=== PATIENT | male | born 1955 | race Caucasian/White ===

== ENCOUNTER → 2016-05-09 | Outpatient (CLI) | payer BC ==
[~2016-05-09] MED LIST: ALBU18002 INH; ALBU1AER9 PO; AMOX1TAB43 PO; ASPCH81X PO; ASPI81TA28 PO; CEPH-571 PO; CLOT1CRE TOP; METO25TA56 PO; NAPR1TAB9 PO; PHEN-876 PO; SULF800T23 PO; TAMS0.4C38 PO; TIOT1AER PO; VNTHFA/IN INH
== END | disposition home or self-care (01) ==
LOC: C.LABSPEC 11:55
PROVIDERS: ATTEND Urology
DX: N35.9 Urethral stricture, unspecified (principal); R39.15 Urgency of urination

== ENCOUNTER 2016-06-20 09:31 | Emergency (ER) | payer BC ==
[~2016-06-20] VITALS: Ht 172.7 cm; Wt 122.4 kg
[~2016-06-20 09:31] MED LIST changes: -ALBU18002 INH; -ASPI81TA28 PO; -CEPH-571 PO; -CLOT1CRE TOP; -PHEN-876 PO; -SULF800T23 PO; -VNTHFA/IN INH
[2016-06-20 09:36] VITALS: TEMP 36.7; Ht 172.7 cm; Wt 122.4 kg
[2016-06-20] MEDS ORDERED: ALBU18002 INH (10:25)
[2016-06-20] MEDS ORDERED: FLUCONAZOLE 50 MG TAB PO ONE (10:30)
--- NOTE | 2016-06-20 10:33 | EMERGENCY ROOM VISIT NOTE ---
History Report prepared by Miguel: Osvaldo Lowery Under the Supervision of: Dr. Isaac Louise M.D. First contact with patient: 10:24 Chief Complaint: URINARY SYMPTOMS Stated Complaint: IRIATIATION IN PENIS, CAN'T STOP PEEING Nursing Triage Summary: Pt c/o urinary symptoms, burning, urgency, frequency for a couple days. History of the same states "I had a blockage. I had to have surgery." History of Present Illness The patient is a 60 year old male who presents to the Emergency Room with complaints of worsening urinary symptoms that started a few days ago. The patient states that when he urinates, the urine "sprays everywhere." Additional symptoms include burning while urinating, redness and swelling of the penis, and urinary frequency. The patient has a history of an UTI, which he believes he is experiencing again today. He also adds a history of a penile abscess. The patient denies abdominal pain, fevers, chills, difficulty with bowel movements, and any additional associated symptoms. He has a history of hypertension. He denies a history of diabetes. Source of History: patient Onset: a few days ago Position: other ( system ) Timing: worsening Modifying Factors (Relieving): other (None) Associated Symptoms: No abdominal pain, No chills, No fevers Note: Additional associated symptoms include redness/ swelling of penis Review of Systems All systems have been listed, reviewed, and are negative other than those previously mentioned. Please see Additional Medical History Sheet. Past Medical & Surgical Medical Problems: (1) COPD (chronic obstructive pulmonary disease) (2) Hypertension (3) Penile abscess Family History Aneurysm Heart disease Hypertension Kidney disease Kidney stones Lung disease Social History Smoking Status: Former Smoker Alcohol Use: occasionally Drug Use: none Marital Status: Housing Status: lives with family Occupation Status: employed Current/Historical Medications Scheduled Clotrimazole (Topical) (Lotrimin Af For Her), 1 APPL TOP BID Metoprolol Tartrate (Lopressor) (Lopressor), 25 MG PO BID Sulfa/Trimethoprim (Bactrim Ds 800MG/160MG), 1 TAB PO BID Tamsulosin Hcl (Flomax), 0.4 MG PO HS Tiotropium [place]-Olodaterol (Stiolto Respimat 2.5-2.5 Mcg/Act), 2 INHA PO DAILY Scheduled PRN Albuterol Sulfate (Proair Respiclick), 1 PUFF INH DAILY PRN for SOB/Wheezing Allergies Coded Allergies: No Known Allergies (Unverified , 10/23/15) Physical Exam Vital Signs Date Time Temp Pulse Resp B/P Pulse Ox O2 Delivery O2 Flow Rate FiO2 06/20/16 12:36 88 18 173/113 95 06/20/16 11:17 84 18 172/108 95 Room Air 06/20/16 09:36 36.7 93 18 191/114 95 Room Air Physical Exam GENERAL: Patient awake, alert, oriented x 3. Patient follows commands. Patient does not appear toxic. Patient is adequately hydrated and well- nourished. SKIN: No erythema, pallor, cyanosis or rash HEENT: Normal head, pupils equal, reactive to light and accommodation. LUNGS: Clear to auscultation. No wheezes, no rales, no rhonchi. HEART: No murmurs. No gallops. No rubs ABDOMEN: Obese. No masses, no rebound, no hepatomegaly or splenomegaly. GENITALIA: Circumcised male. White-josé luis discharge with erythema patches on glands. Scrotum not involved. Shaft of penis swollen EXTREMITIES: No signs of trauma. No pedal or pretibial edema. No calf or thigh tenderness. NEUROLOGIC: Cranial nerves II-XII within normal limits. No gross motor sensory function deficits. Medical Decision & Procedures Laboratory Results 06/20/16 11:12 Red Blood Count 4.79, Mean Corpuscular Volume 85.6, Mean Corpuscular Hemoglobin 31.1, Mean Corpuscular Hemoglobin Concent 36.3, Mean Platelet Volume 9.7, Neutrophils (%) (Auto) 65.5, Lymphocytes (%) (Auto) 22.6, Monocytes (%) (Auto) 8.6, Eosinophils (%) (Auto) 2.7, Basophils (%) (Auto) 0.4, Neutrophils # (Auto) 5.36, Lymphocytes # (Auto) 1.85, Monocytes # (Auto) 0.70, Eosinophils # (Auto) 0.22, Basophils # (Auto) 0.03 06/20/16 11:12 Test 06/20/16 09:40 06/20/16 11:12 Urine Color YELLOW Urine Appearance CLOUDY (CLEAR) Urine pH 6.0 (4.5-7.5) Urine Specific [place] 1.022 (1.000-1.030) Urine Protein TRACE (NEG) Urine Glucose (UA) NEG (NEG) Urine Ketones NEG (NEG) Urine Occult Blood 1+ (NEG) Urine Nitrite NEG (NEG) Urine Bilirubin NEG (NEG) Urine Urobilinogen NEG (NEG) Urine Leukocyte Esterase LARGE (NEG) Urine WBC (Auto) >30 /hpf (0-5) Urine RBC (Auto) 5-10 /hpf (0-4) Urine Hyaline Casts (Auto) 1-5 /lpf (0-5) Urine Epithelial Cells (Auto) 10-20 /lpf (0-5) Urine Bacteria (Auto) 3+ (NEG) White Blood Count 8.18 K/uL (4.8-10.8) Red Blood Count 4.79 M/uL (4.7-6.1) Hemoglobin 14.9 g/dL (14.0-18.0) Hematocrit 41.0 % (42-52) Mean Corpuscular Volume 85.6 fL (80-100) Mean Corpuscular Hemoglobin 31.1 pg (25-34) Mean Corpuscular Hemoglobin Concent 36.3 g/dl (32-36) Platelet Count 185 K/uL (130-400) Mean Platelet Volume 9.7 fL (7.4-10.4) Neutrophils (%) (Auto) 65.5 % Lymphocytes (%) (Auto) 22.6 % Monocytes (%) (Auto) 8.6 % Eosinophils (%) (Auto) 2.7 % Basophils (%) (Auto) 0.4 % Neutrophils # (Auto) 5.36 K/uL (1.4-6.5) Lymphocytes # (Auto) 1.85 K/uL (1.2-3.4) Monocytes # (Auto) 0.70 K/uL (0.11-0.59) Eosinophils # (Auto) 0.22 K/uL (0-0.5) Basophils # (Auto) 0.03 K/uL (0-0.2) RDW Standard Deviation 40.4 fL (36.4-46.3) RDW Coefficient of Variation 12.9 % (11.5-14.5) Immature Granulocyte % (Auto) 0.2 % Immature Granulocyte # (Auto) 0.02 K/uL (0.00-0.02) Anion Gap 7.0 mmol/L (3-11) Est Creatinine Clear Calc Drug Dose 111.3 ml/min Estimated GFR () 106.5 Estimated GFR (Non- 91.9 BUN/Creatinine Ratio 17.8 (10-20) Calcium Level 8.4 mg/dl (8.5-10.1) Laboratory results as stated above per my review. Medications Administered Medications (Trade) Dose Ordered Sig/Manohar Route Start Time Stop Time Status Last Admin Dose Admin Fluconazole (Diflucan Tab) 150 mg NOW ONCE PO 06/20/16 10:30 06/20/16 10:31 DC 06/20/16 11:17 150 MG ED Course 1024: Past medical records reviewed. The patient was evaluated in room C3. A complete history and physical examination was performed. 1030: Ordered Fluconazole 150 mg PO. 1211: Upon reevaluation, the patient appeared to have improvement of his symptoms. I discussed today's findings with the patient. He verbalized agreement of the treatment plan. The patient was discharged home. Medical Decision The Nurses notes reviewed. Medical history sheet reviewed. Differential diagnosis includes but is not limited to: Balanitis, yeast infection, phimosis, paraphimosis. Urinalysis reveals numerous white cells and bacteria. Patient also appears to have yeast balanitis. The patient was started on Diflucan here. He will be started on Bactrim and clotrimazole topical. The patient will require follow- up by a family physician within the next 2 weeks. Impression Primary Impression: Urinary tract infection Additional Impression: Candidal balanitis Scribe Attestation The scribe's documentation has been prepared under my direction and personally reviewed by me in its entirety. I confirm that the note above accurately reflects all work, treatment, procedures, and medical decision making performed by me. Departure Information Dispostion Home / Self-Care Prescriptions Sulfa/Trimethoprim (Bactrim Ds 800MG/160MG) Tab 1 TAB PO BID, #20 TAB Prov: Isaac Louise M.D. 06/20/16 Clotrimazole (Topical) (LOTRIMIN AF FOR HER) 1 % Cre 1 APPL TOP BID for 14 Days, #1 TUBE Prov: Isaac Louise M.D. 06/20/16 Referrals Goldy Orellana M.D. (PCP) Forms HOME CARE DOCUMENTATION FORM, IMPORTANT VISIT INFORMATION Patient Instructions My [facility] Additional Instructions 1 Bactrim twice a day for 10 days. Apply clotrimazole twice a day to your penis after retracting the foreskin and cleaning with soap and water. Then pull the foreskin back down to cover the end of the penis. Follow-up with your family physician within the next 2 weeks. Off work today and tomorrow. Problem Qualifiers
[2016-06-20 10:47] LABS: URINE APPEARANCE CLOUDY (CLEAR); URINE BILIRUBIN NEG (NEG); URINE COLOR YELLOW; URINE NITRITE NEG (NEG); URINE SPECIFIC GRAVITY 1.022 (1.000-1.030); UROBILINOGEN NEG (NEG); ZZUR CULT IF INDIC CLEAN CATCH YES
[2016-06-20 10:56] LABS: MANUAL MICROSCOPIC REQUIRED? NO; REVIEW REQ? NO
[2016-06-20 11:48] LABS: BASO % 0.4 %; BASO ABS # 0.03 K/uL (0-0.2); COMPLETE YES; EOS % 2.7 %; IG% 0.2 %; LYMPH % 22.6 %; LYMPH ABS # 1.85 K/uL (1.2-3.4); MEAN CELL VOLUME 85.6 fL (80-100); MEAN CORPUSCULAR HEMOGLOBIN 31.1 pg (25-34); MEAN CORPUSCULAR HGB CONC 36.3 g/dl (32-36); MEAN PLATELET VOLUME 9.7 fL (7.4-10.4); MONO % 8.6 %; NEUT % 65.5 %; PLATELET COUNT 185 K/uL (130-400); RED BLOOD COUNT 4.79 M/uL (4.7-6.1); WHITE BLOOD COUNT 8.18 K/uL (4.8-10.8)
[2016-06-20 12:04] LABS: BUN/CREATININE RATIO 17.8 (10-20); CALCIUM 8.4 mg/dl (8.5-10.1); CREATININE 0.91 mg/dl (0.60-1.40); POTASSIUM 3.5 mmol/L (3.5-5.1)
[2016-06-20] MEDS ORDERED: CLOT1CRE TOP (12:21)
[2016-06-20] MEDS ORDERED: SULF800T23 PO (12:21)
[2016-06-20 12:36] VITALS: BP 173/113; PULSE 88; O2SAT 95
== END 2016-06-20 12:39 | disposition home or self-care (01) ==
LOC: C.EDB 09:33 → C.EDC 12:39
DX: N39.0 Urinary tract infection, site not specified (principal); B37.42 Candidal balanitis; J44.9 Chronic obstructive pulmonary disease, unspecified; Z82.49 Family history of ischemic heart disease and other diseases of the circulatory system; Z84.1 Family history of disorders of kidney and ureter; Z83.6 Family history of other diseases of the respiratory system; Z87.891 Personal history of nicotine dependence

== ENCOUNTER 2016-11-09 16:40 | Emergency (ER) | payer BC ==
[~2016-11-09] VITALS: Ht 172.7 cm; Wt 124.1 kg
[~2016-11-09 16:40] MED LIST changes: +ALBU18002 INH; -ALBU1AER9 PO; -AMOX1TAB43 PO; -ASPCH81X PO; -NAPR1TAB9 PO; +SULF800T23 PO
[2016-11-09 16:52] VITALS: TEMP 36.7; Ht 172.7 cm; Wt 124.1 kg
[2016-11-09] MEDS ORDERED: ASPI81TA28 PO (17:10)
[2016-11-09] MEDS ORDERED: VNTHFA/IN INH (17:10)
--- NOTE | 2016-11-09 17:13 | EMERGENCY ROOM VISIT NOTE ---
History Report prepared by Miguel: Clint Ybarra Under the Supervision of: Dr. Clari Mir D.O. First contact with patient: 16:58 Chief Complaint: URINARY SYMPTOMS Stated Complaint: URINARY TRACT INFECTION Nursing Triage Summary: Urinary frequency and burning. History of Present Illness The patient is a 61 year old male who presents to the Emergency Room with complaints of abnormal urinary symptoms that began 3 days ago. The patient has been feeling like he has to urinate very frequently, and he notes that he has been urinating a lot more frequently than usual. He is also having some burning with urination. He denies any abdominal pain, back pain, fevers, or chills. Denies any pain with intercourse recently. He has a history of urinary tract infections and states that it could be one. However, he denies hematuria or foul odor. He had a brief episode of diaphoresis last night, but it has resolved since. 1 year ago, the patient saw Dr. Orellana of Urology who performed a surgical procedure on him secondary to his genitalia swelling. This is the first time since the procedure that he has had a symptom. He has no other problems with his prostate or kidneys to his knowledge. Denies swelling to his penis/scrotum. Denies penile discharge, rash/sores, denies testicular tenderness. Source of History: patient Onset: 3 days ago Position: other () Symptom Intensity: moderate Quality: other (Uinary frequency) Timing: other (Very frequent episodes) Associated Symptoms: + diaphoresis (Just one episode last night), + urinary symptoms (Burning with urination), No fevers, No chills, No abdominal pain, No back pain Review of Systems See HPI for pertinent positives & negatives. A total of 10 systems reviewed and were otherwise negative. Past Medical & Surgical Medical Problems: (1) COPD (chronic obstructive pulmonary disease) (2) Hypertension (3) Penile abscess Family History Aneurysm Heart disease Hypertension Kidney disease Kidney stones Lung disease Social History Smoking Status: Former Smoker Smokeless Tobacco Use: No Alcohol Use: occasionally Drug Use: none Marital Status: Housing Status: lives with family Occupation Status: employed Current/Historical Medications Scheduled Aspirin (Aspirin Ec), 81 MG PO DAILY Cephalexin (Keflex), 1 CAP PO BID Metoprolol Tartrate (Lopressor) (Lopressor), 25 MG PO BID Tamsulosin Hcl (Flomax), 0.4 MG PO HS Tiotropium [place]-Olodaterol (Stiolto Respimat 2.5-2.5 Mcg/Act), 2 INHA PO DAILY Scheduled PRN Phenazopyridine HCl (Pyridium), 200 MG PO TID PRN for Frequency/Burning w/ Urination Allergies Coded Allergies: No Known Allergies (Unverified , 10/23/15) Physical Exam Vital Signs Date Time Temp Pulse Resp B/P (MAP) Pulse Ox O2 Delivery O2 Flow Rate FiO2 11/09/16 19:43 80 20 148/90 95 11/09/16 18:28 73 18 150/87 94 Room Air 11/09/16 16:52 36.7 86 18 155/91 95 Room Air Physical Exam GENERAL: alert, well appearing, well nourished, no distress, non-toxic, ambulating normally, obese EYE EXAM: normal conjunctiva, PERRL and EOM's grossly intact OROPHARYNX: no exudate, no erythema, lips, buccal mucosa, and tongue normal and mucous membranes are moist NECK: supple, no nuchal rigidity, no adenopathy, non-tender LUNGS: Clear to auscultation. Normal chest wall mechanics HEART: no murmurs, S1 normal and S2 normal ABDOMEN: abdomen soft, non-tender, normo-active bowel sounds, no masses, no rebound or guarding. BACK: Back is symmetrical on inspection and there is no deformity, no midline tenderness, no CVA tenderness. SKIN: no rashes and no bruising UPPER EXTREMITIES: upper extremities are grossly normal. LOWER EXTREMITIES: No pitting edema. NEURO EXAM: Normal sensorium, cranial nerves II-XII grossly intact, normal speech, no gross weakness of arms, no gross weakness of legs. Medical Decision & Procedures Laboratory Results Test 11/09/16 17:20 11/09/16 18:39 Urine Color YELLOW Urine Appearance CLOUDY (CLEAR) Urine pH 6.5 (4.5-7.5) Urine Specific [place] 1.024 (1.000-1.030) Urine Protein 2+ (NEG) Urine Glucose (UA) TRACE (NEG) Urine Ketones NEG (NEG) Urine Occult Blood 2+ (NEG) Urine Nitrite NEG (NEG) Urine Bilirubin NEG (NEG) Urine Urobilinogen NEG (NEG) Urine Leukocyte Esterase MODERATE (NEG) Urine WBC (Auto) >30 /hpf (0-5) Urine RBC (Auto) 5-10 /hpf (0-4) Urine Hyaline Casts (Auto) 1-5 /lpf (0-5) Urine Epithelial Cells (Auto) 20-30 /lpf (0-5) Urine Bacteria (Auto) 2+ (NEG) Bedside Hemoglobin 11.6 g/dl (14.0-18.0) Bedside Hematocrit 34 % (42-52) Bedside Sodium 139 mEq/L (135-144) Bedside Potassium 4.8 mEq/L (3.3-5.0) Bedside Chloride 103 mEq/L (101-112) Bedside Total CO2 26 mEq/l (24-31) Anion Gap 16.0 mmol/L (16-25) Bedside Blood Urea Nitrogen 18 mg/dl (7-18) Bedside Creatinine 0.9 mg/dl (0.6-1.3) Bedside Glucose (other) 179 mg/dl (70-99) Bedside Ionized Calcium (Tom) 1.22 mmol/l (1.12-1.32) Laboratory results per my review. Medications Administered Medications (Trade) Dose Ordered Sig/Manohar Route Start Time Stop Time Status Last Admin Dose Admin Cephalexin Monohydrate (Keflex Cap) 500 mg NOW ONCE PO 11/09/16 18:00 11/09/16 18:01 DC 11/09/16 18:27 500 MG Phenazopyridine HCl (Pyridium Tab) 200 mg NOW STAT PO 11/09/16 18:09 11/09/16 18:10 DC 11/09/16 18:28 200 MG ED Course 1658: The patient was evaluated in room A4. A complete history and physical exam was performed. 1800: Ordered Keflex Cap 500 mg PO 1809: Ordered Pyridium Tab 200 mg PO 1918: Upon reevaluation, the patient is feeling better. I discussed the findings and the treatment plan with the patient. He verbalizes agreement and understanding. He was discharged home. Medical Decision Differentials include UTI, renal colic, phimosis, paraphimosis, and STD exposure. Pt with UTI on UA, given age and prior hx, labs checked, no renal dysfunction noted. No fevers here. No other systemic sx, no sx to suggest pyelo or stone. Discussed with pt close f/u with urology, sx to watch/return for, he verbalized understanding and was agreeable with plan. Pt well appearing here, ambulated with steady gait. Normal VS, mild htn likely situational. Culture pending. Medication Reconcilliation Current Medication List: was personally reviewed by me Blood Pressure Screening Patient's blood pressure: Elevated blood pressure Blood pressure disposition: Referred to PCP Impression Primary Impression: Urinary tract infection Scribe Attestation The scribe's documentation has been prepared under my direction and personally reviewed by me in its entirety. I confirm that the note above accurately reflects all work, treatment, procedures, and medical decision making performed by me. Departure Information Dispostion Home / Self-Care Prescriptions Phenazopyridine HCl (Pyridium) 200 Mg Tab 200 MG PO TID Y for Frequency/Burning w/Urination, #20 TAB Prov: Clari Mir, DO 11/09/16 Cephalexin (KEFLEX) 500 Mg Cap 1 CAP PO BID for 7 Days, #14 CAP Prov: Clari Mir, DO 11/09/16 Referrals Jonnathan Denton (PCP) Forms HOME CARE DOCUMENTATION FORM, IMPORTANT VISIT INFORMATION Patient Instructions My [facility] Additional Instructions Please take the antibiotics as prescribed. Please drink plenty of water and stay well-hydrated. Please follow up with your urologist as a precaution given your prior history. If you develop any abdominal pain, back pain, nausea or vomiting, fevers or chills, are unable to urinate, or any other new concerns, please return the emergency room. Problem Qualifiers Primary Impression: Urinary tract infection Urinary tract infection type: acute cystitis Hematuria presence: with hematuria Qualified Codes: N30.01 - Acute cystitis with hematuria
[2016-11-09 17:39] LABS: MANUAL MICROSCOPIC REQUIRED? NO; REVIEW REQ? NO; URINE APPEARANCE CLOUDY (CLEAR); URINE BILIRUBIN NEG (NEG); URINE COLOR YELLOW; URINE EPITHELIAL CELL AUTO 20-30 /lpf (0-5); URINE NITRITE NEG (NEG); URINE PH 6.5 (4.5-7.5); URINE SPECIFIC GRAVITY 1.024 (1.000-1.030); UROBILINOGEN NEG (NEG); ZZUR CULT IF INDIC CLEAN CATCH YES
[2016-11-09] MEDS ORDERED: CEPHALEXIN MONOHYDRATE 250 MG CAP PO ONE (18:00)
[2016-11-09] MEDS ORDERED: PHENAZOPYRIDINE HCL 200 MG TAB PO STA (18:09)
[2016-11-09 18:52] LABS: ISTAT CREATININE 0.9 mg/dl (0.6-1.3); ISTAT HEMOGLOBIN 11.6 g/dl (14.0-18.0); ISTAT IONIZED CALCIUM 1.22 mmol/l (1.12-1.32)
[2016-11-09] MEDS ORDERED: CEPH-571 PO (19:29)
[2016-11-09] MEDS ORDERED: PHEN-876 PO (19:29)
[2016-11-09 19:43] VITALS: BP 148/90; PULSE 80; O2SAT 95
== END 2016-11-09 19:44 | disposition home or self-care (01) ==
LOC: C.EDB 16:42 → C.EDA 19:44
DX: N30.01 Acute cystitis with hematuria (principal); J44.9 Chronic obstructive pulmonary disease, unspecified; I10 Essential (primary) hypertension; Z87.440 Personal history of urinary (tract) infections; Z87.891 Personal history of nicotine dependence; Z82.49 Family history of ischemic heart disease and other diseases of the circulatory system; Z84.1 Family history of disorders of kidney and ureter; Z79.82 Long term (current) use of aspirin; Z79.899 Other long term (current) drug therapy

== ENCOUNTER 2021-03-30 13:45 | Inpatient (IN) ==
--- NOTE | 2021-03-30 14:37 | Emergency Department Note ---
Impression & Plan Renal colic, Hydronephrosis, Leukocytosis, Vomiting ED Provider Note NAME: CLAY HENDRIX AGE: 65 SEX: M : 1955 ARRIVES VIA: Ambulance INFORMANT: Patient ED PROVIDER(S): Nathan Hemphill DO CHIEF COMPLAINT: Flank pain HPI: Patient is a 65-year-old male who presents to the ER for left flank pain. This started last night as a twinge and gradually got worse. Start with nausea and vomiting. He did have some diarrhea last night. Pain has intensified and radiated out to the left side. Denies any dysuria, urgency, frequency, or hematuria. No history of previous urinary stones. No other exacerbating or remitting factors. EMS gave him Toradol and his pain has now significantly improved. It was sharp and stabbing and now is dull. ROS: See above HPI for pertinent positives & negatives. A total of 10 systems reviewed and were otherwise negative. PAST MEDICAL HISTORY:See Below PAST SURGICAL HISTORY:See Below FAMILY HISTORY:See Below SOCIAL HISTORY:See Below HOME MEDICATIONS:See Below ALLERGIES:See Below VITALS:See Below PHYSICAL EXAMINATION: GENERAL: Sitting up in bed, alert, disheveled, mild distress EYE EXAM: normal conjunctiva. PERRL and EOM's grossly intact. OROPHARYNX: no exudate, no erythema, lips, buccal mucosa, and tongue normal and mucous membranes are moist NECK: supple, no nuchal rigidity, no adenopathy, non-tender LUNGS: Clear to auscultation. Normal chest wall mechanics HEART: no murmurs, S1 normal and S2 normal ABDOMEN: abdomen soft, non-tender, normo-active bowel sounds, no masses, no rebound or guarding. BACK: Back is symmetrical on inspection and there is no deformity, no midline tenderness, no CVA tenderness. SKIN: no rashes and no bruising UPPER EXTREMITIES: upper extremities are grossly normal. LOWER EXTREMITIES: No pitting edema. NEURO EXAM: Normal sensorium, cranial nerves II-XII grossly intact, normal speech, no gross weakness of arms, no gross weakness of legs. MEDICAL DECISION MAKING: Patient is a 65-year-old male who presents the ER for left flank pain. IV was established blood was obtained. Is found to be slightly tachycardic. Labs show leukocytosis of 15,000. There is a left shift. BMP on LFTs bilirubin and lipase was unremarkable. UA does suggest a UTI with leuks whites and only 5-[address] epithelials[address] Covid was negative. CT abdomen pelvis shows a distal 4 mm left ureteral stone. Patient was given Toradol prior to arrival and did extremely well. He was given IV fluids and [address] Klever Lovell from urology. He recommends following up in the office as an outpatient. Just prior to discharge patient started having significant worsening pain. He was having dry heaving earlier and that continued and was fairly persistent. He was given multiple doses of Zofran. He was also given multiple doses of morphine. He was discussed with hospitalist for further evaluation due to persistent pain and dry heaving. Triage Nursing notes reviewed. Limited review of prior medical records performed Vital Signs: reviewed and remarkable for hypertensive and tachycardic Differential diagnosis: Differential diagnoses includes but is not limited to gastritis, peptic ulcer disease, GERD, gallbladder disease, pancreatitis, small bowel obstruction, acute coronary syndrome, pericarditis, ischemic bowel, irritable bowel disease, irritable bowel syndrome, appendicitis, diverticulitis, malignancy, hernia, urinary tract infection, torsion, perforation, trauma, infectious. ER treatment provided: See below Diagnostics interpreted by me: ECG: none Cardiac Monitoring: An order was placed for continuous cardiac monitoring. The monitor shows a rate of 95 with sinus rhythm. Laboratory studies: As stated above and show below. Imaging studies: CT as discussed above Consultation(s): Discussed with neurology and they recommend following up as an outpatient Discussed with the hospitalist as pain had significant worsened and clinically cannot go home Procedures: none Critical Care: None Past Med/Surg History Medical History (Updated 03/30/21 @ 19:33 by Nathan Hemphill DO) Asthma WITH EARLY SIGNS OF EMPHYSEMA Diabetes mellitus, type 2 Hyperlipidemia Hypertension Kidney stones once Surgical History History of adenoidectomy History of incision and drainage PENIS/SCROTUM History of tonsillectomy Hx of vasectomy Pilonidal cyst Pyloric stenosis REPAIRED INFANT Family History Mother Family history of diabetes mellitus Social History Smoking Status: Former smoker Cigarettes Per Day: Smoked 1ppd x 35 years; Second Hand Exposure: No; Hx Alcohol Use: Yes Alcohol type: beer and hard liquor Hx Substance Use: No Preferred Language: Citizen Of [place] Communication Ability: Effective Postpartum Nurse Required: No Beliefs That Will Affect Care: None Current Living Situation: Spouse Feels Safe at Home: Yes Assistive Devices: Glasses Allergies Allergies Allergy/AdvReac Type Severity Reaction Status Date / Time No Known Drug Allergies Allergy Verified 03/30/21 16:40 Home Meds Home Medications Medication Instructions Recorded Confirmed albuterol sulfate 90 mcg/actuation 2 puff INHALATION Q6H PRN 07/01/18 03/30/21 aerosol inhaler fluticasone furoate 100 1 inh INHALATION QAM 07/01/18 03/30/21 mcg-vilanterol 25 mcg/dose inhalation powder (Breo Ellipta) metformin 1,000 mg tablet 1,000 mg PO BID 07/01/18 03/30/21 metoprolol tartrate 25 mg tablet 25 mg PO BID 07/01/18 03/30/21 simvastatin 20 mg tablet 20 mg PO QPM 11/04/18 03/30/21 B-complex with vitamin C 1 tab PO DAILY 03/30/21 03/30/21 Focus Factor 1 tab PO BID 03/30/21 03/30/21 aspirin 81 mg tablet,delayed 81 mg PO DAILY 03/30/21 03/30/21 release enalapril maleate 5 mg tablet 10 mg PO BID 03/30/21 03/30/21 exenatide microspheres 2 mg/0.85 2 mg SUBCUT WK 03/30/21 03/30/21 mL subcutaneous auto-injector (Byarpit Ambriz) multivitamin (Multiple Vitamins) 1 tab PO DAILY 03/30/21 03/30/21 Previous Rx's Medication Instructions Recorded ciprofloxacin HCl 500 mg tablet 500 mg PO Q12H #20 tab 03/30/21 (Cipro) oxycodone 5 mg tablet 5 mg PO Q6H PRN #20 tab 03/30/21 Results & Data (ED) Vital Signs Vital Signs - 24 hr 03/30/21 14:00 03/30/21 14:03 03/30/21 14:32 Temperature 36.8 C Temperature Source Oral Pulse Rate 105 H 104 H Pulse Rate [Left Finger] 105 H Pulse Rhythm Regular Regular Pulse Rhythm [Left Finger] Regular Pulse Strength Normal Pulse Strength [Left Finger] Normal Respiratory Rate 20 20 20 Respiratory Effort / Characteristics Non-Labored Spontaneous Non-Labored Respiratory Depth Normal Normal Respiratory Pattern Regular Blood Pressure 168/98 H Blood Pressure [Right Arm] 168/98 H Blood Pressure Mean 121 Blood Pressure Mean [Right Arm] 121 Blood Pressure Position Lying Blood Pressure Position [Right Arm] Sitting Pulse Oximetry 96 96 95 Oxygen Delivery Method Room Air Room Air Room Air Sepsis Recent Fever Within 48 Hours No Sepsis New/Unexplained Change in Mental Status No Sepsis Action Taken by Nursing No Action Required 03/30/21 15:08 03/30/21 17:08 03/30/21 18:30 Temperature Temperature Source Pulse Rate Pulse Rate [Left Finger] 108 H 91 H 104 H Pulse Rhythm Pulse Rhythm [Left Finger] Regular Regular Regular Pulse Strength Pulse Strength [Left Finger] Normal Normal Normal Respiratory Rate 20 20 20 Respiratory Effort / Characteristics Non-Labored Spontaneous Non-Labored Spontaneous Non-Labored Spontaneous Respiratory Depth Normal Normal Normal Respiratory Pattern Regular Regular Regular Blood Pressure Blood Pressure [Right Arm] 164/96 H 197/103 H 174/101 H Blood Pressure Mean Blood Pressure Mean [Right Arm] 118 134 125 Blood Pressure Position Blood Pressure Position [Right Arm] Sitting Sitting Sitting Pulse Oximetry 96 97 93 Oxygen Delivery Method Room Air Room Air Room Air Sepsis Recent Fever Within 48 Hours Sepsis New/Unexplained Change in Mental Status Sepsis Action Taken by Nursing Laboratory Data Result diagrams: 03/30/21 14:53 03/30/21 14:53 Lab Results 03/30/21 03/30/21 03/30/21 Range/Units 14:40 14:53 14:53 WBC 14.99 H (4.8-10.8) K/uL RBC 4.99 (4.7-6.1) M/uL Hgb 15.8 (14.0-18.0) g/dL Hct 45.4 (42-52) % MCV 91.0 (80-100) fL MCH 31.7 (25-34) pg MCHC 34.8 (32-36) g/dL RDW Std Deviation 43.5 (36.4-46.3) fL RDW Coeff of Zully 13.3 (11.5-14.5) % Plt Count 225 (130-400) K/uL MPV 9.5 (7.4-10.4) fL Immature Gran % (Auto) 0.3 % Neut % (Auto) 89.4 % Lymph % (Auto) 5.1 % [place] % (Auto) 5.0 % Eos % (Auto) 0.1 % Baso % (Auto) 0.1 % Neut # (Auto) 13.41 H (1.4-6.5) K/uL Lymph # (Auto) 0.77 L (1.2-3.4) K/uL [place] # (Auto) 0.75 H (0.11-0.59) K/uL Eos # (Auto) 0.01 (0-0.5) K/uL Baso # (Auto) 0.01 (0-0.2) K/uL Immature Gran # (Auto) 0.04 H (0.00-0.02) K/uL Sodium 138 (136-145) mmol/L Potassium 3.7 (3.5-5.1) mmol/L Chloride 106 (98-107) mmol/L Carbon Dioxide 26 (21-32) mmol/L Anion Gap 6.0 (3-11) BUN 16 (7-18) mg/dl Creatinine 1.13 (0.6-1.4) mg/dl Est Cr Clr Drug Dosing 82.2 ml/min Est GFR ( Amer) 79.2 ml/min Est GFR (Non-Af Amer) 68.3 ml/min BUN/Creatinine Ratio 14.5 (10-20) Glucose 173 H (70-99) mg/dl Calcium 9.0 (8.5-10.1) mg/dl Total Bilirubin 0.8 (0.2-1) mg/dl AST 22 (15-37) U/L ALT 41 (12-78) Alkaline Phosphatase 88 (45-117) U/L Total Protein 7.8 (6.4-8.2) gm/dl Albumin 3.8 (3.4-5.0) gm/dl Globulin 4.0 (2.5-4.0) gm/dl Albumin/Globulin Ratio 1.0 (0.9-2) Lipase 192 (73-393) U/L Urine Color Dark Yellow Urine Appearance Turbid A (Clear) Urine pH 5.0 (4.5-7.5) Ur Specific [place] 1.022 (1.000-1.030) Urine Protein 2+ H (Negative) Urine Glucose (UA) Negative (Negative) Urine Ketones 2+ H (Negative) Urine Blood 3+ H (Negative) Urine Nitrite Negative (Negative) Urine Bilirubin Negative (Negative) Urine Urobilinogen Negative (Negative) Ur Leukocyte Esterase 3+ H (Negative) Urine WBC (Auto) >30 H (0-5) /hpf Urine RBC (Auto) >30 H (0-4) /hpf U Hyaline Cast (Auto) 0 (0-5) /lpf U Epithel Cells (Auto) 5-10 H (0-5) /lpf Urine Bacteria (Auto) Negative (Negative) Urine Yeast Not Reportable SARS-CoV-2, RNA, NAAT (NEGATIVE) 03/30/21 Range/Units 18:20 WBC (4.8-10.8) K/uL RBC (4.7-6.1) M/uL Hgb (14.0-18.0) g/dL Hct (42-52) % MCV (80-100) fL MCH (25-34) pg MCHC (32-36) g/dL RDW Std Deviation (36.4-46.3) fL RDW Coeff of Zully (11.5-14.5) % Plt Count (130-400) K/uL MPV (7.4-10.4) fL Immature Gran % (Auto) % Neut % (Auto) % Lymph % (Auto) % [place] % (Auto) % Eos % (Auto) % Baso % (Auto) % Neut # (Auto) (1.4-6.5) K/uL Lymph # (Auto) (1.2-3.4) K/uL [place] # (Auto) (0.11-0.59) K/uL Eos # (Auto) (0-0.5) K/uL Baso # (Auto) (0-0.2) K/uL Immature Gran # (Auto) (0.00-0.02) K/uL Sodium (136-145) mmol/L Potassium (3.5-5.1) mmol/L Chloride (98-107) mmol/L Carbon Dioxide (21-32) mmol/L Anion Gap (3-11) BUN (7-18) mg/dl Creatinine (0.6-1.4) mg/dl Est Cr Clr Drug Dosing ml/min Est GFR ( Amer) ml/min Est GFR (Non-Af Amer) ml/min BUN/Creatinine Ratio (10-20) Glucose (70-99) mg/dl Calcium (8.5-10.1) mg/dl Total Bilirubin (0.2-1) mg/dl AST (15-37) U/L ALT (12-78) Alkaline Phosphatase (45-117) U/L Total Protein (6.4-8.2) gm/dl Albumin (3.4-5.0) gm/dl Globulin (2.5-4.0) gm/dl Albumin/Globulin Ratio (0.9-2) Lipase (73-393) U/L Urine Color Urine Appearance (Clear) Urine pH (4.5-7.5) Ur Specific [place] (1.000-1.030) Urine Protein (Negative) Urine Glucose (UA) (Negative) Urine Ketones (Negative) Urine Blood (Negative) Urine Nitrite (Negative) Urine Bilirubin (Negative) Urine Urobilinogen (Negative) Ur Leukocyte Esterase (Negative) Urine WBC (Auto) (0-5) /hpf Urine RBC (Auto) (0-4) /hpf U Hyaline Cast (Auto) (0-5) /lpf U Epithel Cells (Auto) (0-5) /lpf Urine Bacteria (Auto) (Negative) Urine Yeast SARS-CoV-2, RNA, NAAT NEGATIVE (NEGATIVE) Administered Medications Discontinued Medications Sodium Chloride (Nss 1000ml) 1,000 mls @ 999 mls/hr IV .Q1H1M ONE Stop: 03/30/21 16:47 Last Infusion: 03/30/21 17:19 Dose: 0 mls/hr Documented by: [id number] Admin: 03/30/21 16:05 Dose: 999 mls/hr Documented by: [id number] Ceftriaxone Sodium (Rocephin) 1,000 mg in 50 mls @ 100 mls/hr IV NOW STA Stop: 03/30/21 16:34 Last Infusion: 03/30/21 17:19 Dose: 0 mls/hr Documented by: [id number] Admin: 03/30/21 16:14 Dose: 100 mls/hr Documented by: [id number] Morphine Sulfate (Morphine Sulfate 4 Mg/Ml 1 Ml Carp\Vial) 4 mg IV NOW STA Stop: 03/30/21 16:45 Last Admin: 03/30/21 16:50 Dose: 4 mg Documented by: [id number] Morphine Sulfate (Morphine Sulfate 10 Mg/Ml Carp/Vial) 6 mg IV NOW STA Stop: 03/30/21 17:26 Last Admin: 03/30/21 18:06 Dose: 6 mg Documented by: [id number] Ondansetron HCl (Ondansetron Inj 2 Mg/Ml 2 Ml Vial) 4 mg IV NOW STA Stop: 03/30/21 16:45 Last Admin: 03/30/21 16:50 Dose: 4 mg Documented by: [id number] Imaging Data Radiologist's Impression: Abdomen/Pelvis CT 03/30/21 14:[address] WITHOUT CONTRAST CT DOSE: 1421.39 mGy.cm HISTORY: Acute right-sided flank pain l flank pain TECHNIQUE: Multiaxial CT images of the abdomen and pelvis were performed without contrast. A dose lowering technique was utilized adhering to the principles of ALARA. COMPARISON STUDY: None. FINDINGS: Clear lung bases. Punctate calcified granuloma the basal right lower lobe. There is no pneumatosis or pneumoperitoneum. The imaged inferior cardiac chambers appear unremarkable. The unenhanced spleen, pancreas, adrenal glands and gallbladder are unremarkable. Hepatic steatosis. There is mild left greater the right bilateral perinephric stranding. Mild cortical scarring with parenchymal thinning of the interpolar right kidney. There are a few scattered nonobstructing calculi of the right kidney measuring up to 3 mm. Mild left-sided hydroureteronephrosis secondary to an obstructing 4 mm calculus of the distal left ureter approximately 1 cm proximal to the ureterovesicular junction. Prostamegaly. Chronic bladder outlet obstruction with urinary bladder wall thickening, trabeculation and numerous diverticula measuring up to 4 cm. Associated perivesicular stranding. Atherosclerosis of the aorta without aneurysm. There is no adenopathy. There is no bowel obstruction or bowel wall thickening. Colonic diverticulosis. Normal appendix. Tiny fat filled periumbilical hernia. Degenerative changes of the spine, pelvis and hips. No acute fracture or suspicious bone lesion. IMPRESSION: 1. Mild left-sided hydroureter process secondary to an obstructing 4 mm calculus of the distal left ureter. 2. Nonobstructing right nephrolithiasis. 3. Prostamegaly with evidence of chronic bladder outlet obstruction. 4. Hepatic steatosis. ACT 112: Negative or not required by law. The above report was generated using voice recognition software. It may contain grammatical, syntax or spelling errors. Electronically signed by: Alen Garcia M.D. 03/30/2021 3:15 PM Discharge Plan Visit Data Chief Complaint: Flank Pain ED Provider: Nathan Hemphill Discharge Problem: Renal colic, Hydronephrosis, Leukocytosis, Vomiting Discharge Instructions Krames/Other Patient Handouts: ED [facility] Kidney Stone Activity Restrictions/Additional Instructions: Please follow up with your primary care doctor with in the next 24 hours. Any worsening of your symptoms, please return to the ED immediately. This includes any fevers greater than 100.4, worsening pain, chest pain, shortness breath, persistent nausea, vomiting, unable to eat or drink, or any other concerning signs or symptoms from your standpoint. You were found to have a blood pressure greater than 120 systolic over 90 diastolic. Due to the new Medicare guidelines, we are now recommending that you follow up with your primary care doctor in regards to this elevated blood pressure. Again any fevers above 100.4 please return to the ER immediately. Please contact urology first thing Thursday to set up an appointment and notify them that you were in the ER and were found to have a kidney stone. You were given medications during this visit that will inhibit your ability to drive, operate machinery and work. Please do NOT drive, operate machinery or work for the next 12hrs. You were also given a prescription for a narcotic. While taking this medication you should also not drive, operate machinery and or work. Please take the oxycodone [id number] for the first 24 hours as the pain is the worst during this time. You may also benefit from taking Motrin 400 mg 3 times a day just for the first 24 hours. Please take antibiotics as prescribed. Forms Stand Alone Forms: [facility] Prescriptions Prescriptions: New ciprofloxacin HCl [Cipro] 500 mg tablet 500 mg PO Q12H Qty: 20 RF: 0 oxycodone 5 mg tablet 5 mg PO Q6H PRN (Reason: pain) Qty: 20 RF: 0 No Action simvastatin 20 mg tablet 20 mg PO QPM RF: 0 metoprolol tartrate 25 mg Tablet 25 mg PO BID RF: 0 Breo Ellipta 100-25 mcg/dose Blister With Device 1 inh INHALATION QAM RF: 0 albuterol sulfate 90 mcg/actuation Hfa Aerosol Inhaler 2 puff INHALATION Q6H PRN (Reason: Wheezing) RF: 0 metformin 1,000 mg Tablet 1,000 mg PO BID RF: 0 aspirin [Aspir-Low] 81 mg Tablet,Delayed Release (Dr/Ec) 81 mg PO DAILY RF: 0 Bydureon BCise 2 mg/0.85 mL auto-injector 2 mg SUBCUT WK RF: 0 B-complex with vitamin C [Vitamin B Complex-C] Tablet 1 tab PO DAILY RF: 0 enalapril maleate 5 mg tablet 10 mg PO BID RF: 0 Focus Factor 1 tab PO BID RF: 0 multivitamin [Multiple Vitamins] Tablet 1 tab PO DAILY RF: 0 Referrals Referrals: Jonnathan Denton MD [Primary Care Provider] -
[2021-03-30 14:54] LABS: Appearance Urine Turbid (Clear); Bacteria Urine Automated Negative (Negative); Bilirubin Urine Negative (Negative); Blood Urine 3+ (Negative); Cast Urine Automated 0 /lpf (0-5); Color Urine Dark Yellow; Glucose Urine UA Negative (Negative); Ketones Urine 2+ (Negative); Leukocyte Esterase Urine 3+ (Negative); Nitrite Urine Negative (Negative); Protein Urine 2+ (Negative); Specific Gravity Urine 1.022 (1.000-1.030); Urobilinogen Urine Negative (Negative); WBC Urine Automated >30 /hpf (0-5)
[2021-03-30 15:05] LABS: Basophils # (auto) 0.01 K/uL (0-0.2); Basophils % (auto) 0.1 %; Eosinophils # (auto) 0.01 K/uL (0-0.5); Eosinophils % (auto) 0.1 %; Hematocrit (blood only) 45.4 % (42-52); Hemoglobin 15.8 g/dL (14.0-18.0); Immature Granulocytes # (auto) 0.04 K/uL (0.00-0.02); Immature Granulocytes % (auto) 0.3 %; Lymphocytes # (auto) 0.77 K/uL (1.2-3.4); Lymphocytes % (auto) 5.1 %; Mean Corpuscular Hemoglobin 31.7 pg (25-34); Mean Corpuscular Hgb Conc 34.8 g/dL (32-36); Mean Platelet Volume 9.5 fL (7.4-10.4); Monocytes # (auto) 0.75 K/uL (0.11-0.59); Neutrophils # (auto) 13.41 K/uL (1.4-6.5); Neutrophils % (auto) 89.4 %; Platelet Count 225 K/uL (130-400); RDW Coefficient of Variation 13.3 % (11.5-14.5); RDW Standard Deviation 43.5 fL (36.4-46.3); Red Blood Count 4.99 M/uL (4.7-6.1); White Blood Count 14.99 K/uL (4.8-10.8)
[2021-03-30 15:09] LABS: RBC Urine Automated >30 /hpf (0-4)
--- NOTE | 2021-03-30 15:17 | CT Scan Report ---
ABDOMEN AND PELVIS CT WITHOUT CONTRAST CT DOSE: 1421.39 mGy.cm HISTORY: Acute right-sided flank pain l flank pain TECHNIQUE: Multiaxial CT images of the abdomen and pelvis were performed without contrast. A dose lo wering technique was utilized adhering to the principles of ALARA. COMPARISON STUDY: None. FINDINGS: Clear lung bases. Punctate calcified granuloma the basal right lower lobe. There is no pneu matosis or pneumoperitoneum. The imaged inferior cardiac chambers appear unremarkable. The unenhanced spleen, pancreas, adrenal glands and gallbladder are unremarkable. Hepatic steatosis. There is mild left greater the right bilateral perinephric stranding. Mild cortical scarring with parenchymal thinn ing of the interpolar right kidney. There are a few scattered nonobstructing calculi of the right kid wei measuring up to 3 mm. Mild left-sided hydroureteronephrosis secondary to an obstructing 4 mm calc ulus of the distal left ureter approximately 1 cm proximal to the ureterovesicular junction. Prostame clarisa. Chronic bladder outlet obstruction with urinary bladder wall thickening, trabeculation and nume antwan diverticula measuring up to 4 cm. Associated perivesicular stranding. Atherosclerosis of the aor ta without aneurysm. There is no adenopathy. There is no bowel obstruction or bowel wall thickening. Colonic diverticulosis. Normal appendix. Tiny fat filled periumbilical hernia. Degenerative changes of the spine, pelvis and hips. No acute fractu re or suspicious bone lesion. IMPRESSION: 1. Mild left-sided hydroureter process secondary to an obstructing 4 mm calculus of the distal left u reter. 2. Nonobstructing right nephrolithiasis. 3. Prostamegaly with evidence of chronic bladder outlet obstruction. 4. Hepatic steatosis. ACT 112: Negative or not required by law. The above report was generated using voice recognition software. It may contain grammatical, syntax o r spelling errors. Electronically signed by: Alen Garcia M.D. 03/30/2021 3:15 PM
[2021-03-30 15:26] LABS: Albumin Level 3.8 gm/dl (3.4-5.0); BUN Creatinine Ratio 14.5 (10-20); Creatinine Clr Calc Pharmacy 82.2 ml/min; Est GFR (African American) 79.2 ml/min; Est GFR (Non-African American) 68.3 ml/min; Potassium 3.7 mmol/L (3.5-5.1)
[2021-03-30 15:28] LABS: Bilirubin,Total 0.8 mg/dl (0.2-1); Total Protein 7.8 gm/dl (6.4-8.2)
[2021-03-30] MEDS ORDERED: SODIUM CHLORIDE 0.9% 1000ML 1,000 ML IV ONE (15:47)
[2021-03-30] MEDS ORDERED: cefTRIAXone SODIUM 1,000 MG/50 ML BAG IV STA (16:05)
[2021-03-30] MEDS ORDERED: MoRPHine SULFATE 4 MG/ML 1 ML CARP\\VIAL IV STA (16:44)
[2021-03-30] MEDS ORDERED: ONDANSETRON INJ 2 MG/ML 2 ML VIAL IV STA ×2 (16:44→17:25)
[2021-03-30] MEDS ORDERED: MoRPHine SULFATE 10 MG/ML CARP/VIAL IV STA (17:25)
[2021-03-30] MEDS ORDERED: ACETAMINOPHEN 325 MG TAB PO PRN (17:43)
[2021-03-30] MEDS ORDERED: MoRPHine SULFATE 4 MG/ML 1 ML CARP\\VIAL IV PRN (18:05)
--- NOTE | 2021-03-30 18:24 | History & Physical Report ---
Date of Service March 30, 2021 Assessment & Plan (1) Nephrolithiasis: Plan: Bilateral- left sided renal colic with 4mm left sided obstructing proximal to UV junction - Pain control- Tylenol, Toradol, Oxy, Morphine for severe pain - Zofran for nausea - LR at 100ml/hour - Flomax 0.4 mg now and then qam - strain all urine - Urology consult placed - NPO (2) Renal colic: Plan: As above (3) Leukocytosis: Plan: Elevated WBC and NLR - UA mostly contaminated - Continue Rocephin 1GM for UTI and known stone - Afebrile (4) COPD (chronic obstructive pulmonary disease): Plan: Continue albuterol and Breo - no acute needs and does not have frequent exacerbations (5) Hypertension: Plan: Continue BB - Patient on enalipril- not on formulary - Likely elevated now secondary to pain - Follow, may have to convert enalapril to formulary (6) Diabetes mellitus: Plan: Hold Metformin - aspart sliding scale - BG q6 hour while NPO (7) HLD (hyperlipidemia): Plan: Continue simvastatin 20mg PO QPM (8) DVT prophylaxis: Plan: SCDS- ambulation - Hold on chemoprohy at this time until urology evaluation completed History of Present Illness Primary Care Provider: Jonnathan Denton MD 65f YOM with past medical history of: Obesity, DM II, HTN, HLD, urethral stricutres, meatal stenosis,COPD. Patient comes to the EMD today for 1 day history of renal colic pain to left side associated with nausea/vomitting. Patient was brought in via EMS- he received toradol and Zofran on the way, which he states made his pain better, upon preparing for discharge from EMD patient had increase in his pain and vomitted again. Patient to be admitted for pain control, IVF, continue abx, and urology evaluation. Patient states that last evening he developed sharp pain in his left side and was immediately followed by vomiting. He was able to sleep through the night and when he got up this morning he felt cold and clammy, showered and sat down to have a cup of coffee. Following his 2 sips of coffee he had pain again on his left flank and was associated with nausea and vomiting again. In the EMD the patient had CT scan of abdomen and pelvis completed, routine labs, UA and COVID test. His CT abdomen and pelvis revealed Mild left-sided hydroureter process secondary to an obstructing 4 mm calculus of the distal left ureter and few scattered stones on the right side, prostamegaly with chronic outlet obstruction. In the EMD he recieved 1 GM Rocephin, morphine and Zofran. Patient just returned from bathroom and feels better at this time. As above, will admit for symptom control and evaluation in the morning. Will keep NPO, LR at 100ml/hr, Flomax 0.4mg now and then daily. Patient has received his COVID vaccine and booster: His COVID test on admission is: Allergies Allergy/AdvReac Type Severity Reaction Status Date / Time No Known Drug Allergies Allergy Verified 03/30/21 16:40 Home Medications Medication Instructions Recorded Confirmed Type albuterol sulfate 90 mcg/actuation 2 puff INHALATION Q6H PRN 07/01/18 03/30/21 History aerosol inhaler fluticasone furoate 100 1 inh INHALATION QAM 07/01/18 03/30/21 History mcg-vilanterol 25 mcg/dose inhalation powder (Breo Ellipta) metformin 1,000 mg tablet 1,000 mg PO BID 07/01/18 03/30/21 History metoprolol tartrate 25 mg tablet 25 mg PO BID 07/01/18 03/30/21 History simvastatin 20 mg tablet 20 mg PO QPM 11/04/18 03/30/21 History B-complex with vitamin C 1 tab PO DAILY 03/30/21 03/30/21 History Focus Factor 1 tab PO BID 03/30/21 03/30/21 History aspirin 81 mg tablet,delayed 81 mg PO DAILY 03/30/21 03/30/21 History release ciprofloxacin HCl 500 mg tablet 500 mg PO Q12H #20 tab 03/30/21 Rx (Cipro) enalapril maleate 5 mg tablet 10 mg PO BID 03/30/21 03/30/21 History exenatide microspheres 2 mg/0.85 2 mg SUBCUT WK 03/30/21 03/30/21 History mL subcutaneous auto-injector (Bydureluisa BCise) multivitamin (Multiple Vitamins) 1 tab PO DAILY 03/30/21 03/30/21 History oxycodone 5 mg tablet 5 mg PO Q6H PRN #20 tab 03/30/21 Rx Past Med/Surg History Medical History (Updated 03/31/21 @ 10:33 by Bigg Neumann MD) Asthma WITH EARLY SIGNS OF EMPHYSEMA Diabetes mellitus, type 2 Hyperlipidemia Hypertension Kidney stones once Surgical History History of adenoidectomy History of incision and drainage PENIS/SCROTUM History of tonsillectomy Hx of vasectomy Pilonidal cyst Pyloric stenosis REPAIRED INFANT Family History Mother Family history of diabetes mellitus Social History Smoking Status: Former smoker Cigarettes Per Day: Smoked 1ppd x 35 years; Second Hand Exposure: No; Hx Alcohol Use: Yes Alcohol type: beer and hard liquor Hx Substance Use: No Preferred Language: Occitan Communication Ability: Effective Opto Mechanical Technician Required: No Beliefs That Will Affect Care: None Current Living Situation: Spouse Feels Safe at Home: Yes Assistive Devices: None Review of Systems Review of Systems: REVIEW OF SYSTEMS: Constitutional: (+) fever, sweats or chills Eyes: No diplopia, no worsening or blurred vision ENT: normal hearing, no trouble swallowing Respiratory: No cough, sputum, dyspnea at rest or on exertion Cardiovascular: No chest pain, tightness or palpitations Abdomen: (+) left flank pain, nausea, vomiting, diarrhea, NO constipation Musculoskeletal: No joint pain, calf pain, swelling Neurologic: No weakness, numbness/tingling, or balance problems Psychiatric: No anxiety or depression Skin: No rash or itch Physical Exam Physical Exam: PHYSICAL EXAM: General: awake, alert, no apparent distress Head: Normocephalic, atraumatic ENT: PERRL, EOMI, no pharyngeal exudate, mucous membranes moist Neuro: AAO x 3, speech clear and appropriate, strength intact bilaterally 5/5, sensation intact and equal all extremities and dermatomes, no pronator drift Chest: equal rise and fall of the chest, no accessory muscle use, no heaves or thrills, decreased in bases secondary to body habitus, on room air, Cardiac: Regular rate and rhythm, telemetry reviewed, skin warm dry, cap refill <3 seconds, peripheral pulses +2 no JVD, no murmur, no edema GI: NABS x 4 quadrants, soft, nontender to palpation, no rebound, guarding or tenderness : Spontaneously voiding, no pain, no CVA tenderness, Extremities: Normal inspection, no peripheral edema or erythema, calfs nontender to palpation Psych: Normal mood and affect Skin: no rash or erythema Results & Data Results & Data ([facility]) Vital Signs (Past 12 Hours) Vital Signs Temp Pulse Pulse Resp BP BP Pulse Ox 03/30/21 15:08 108 H 20 164/96 H 96 03/30/21 14:32 104 H 20 95 03/30/21 14:03 36.8 C 105 H 20 168/98 H 96 03/30/21 14:00 105 H 20 168/98 H 96 Laboratory Results Abnormal lab results 03/30/21 03/30/21 03/30/21 Range/Units 14:40 14:53 14:53 WBC 14.99 H (4.8-10.8) K/uL Neut # (Auto) 13.41 H (1.4-6.5) K/uL Lymph # (Auto) 0.77 L (1.2-3.4) K/uL Rogers # (Auto) 0.75 H (0.11-0.59) K/uL Immature Gran # (Auto) 0.04 H (0.00-0.02) K/uL Glucose 173 H (70-99) mg/dl Urine Appearance Turbid A (Clear) Urine Protein 2+ H (Negative) Urine Ketones 2+ H (Negative) Urine Blood 3+ H (Negative) Ur Leukocyte Esterase 3+ H (Negative) Urine WBC (Auto) >30 H (0-5) /hpf Urine RBC (Auto) >30 H (0-4) /hpf U Epithel Cells (Auto) 5-10 H (0-5) /lpf Diagnostic Findings Abdomen/Pelvis CT 03/30/21 14:[address] WITHOUT CONTRAST CT DOSE: 1421.39 mGy.cm HISTORY: Acute right-sided flank pain l flank pain TECHNIQUE: Multiaxial CT images of the abdomen and pelvis were performed without contrast. A dose lowering technique was utilized adhering to the principles of ALARA. COMPARISON STUDY: None. FINDINGS: Clear lung bases. Punctate calcified granuloma the basal right lower lobe. There is no pneumatosis or pneumoperitoneum. The imaged inferior cardiac chambers appear unremarkable. The unenhanced spleen, pancreas, adrenal glands and gallbladder are unremarkable. Hepatic steatosis. There is mild left greater the right bilateral perinephric stranding. Mild cortical scarring with parenchymal thinning of the interpolar right kidney. There are a few scattered nonobstructing calculi of the right kidney measuring up to 3 mm. Mild left-sided hydroureteronephrosis secondary to an obstructing 4 mm calculus of the distal left ureter approximately 1 cm proximal to the ureterovesicular junction. Prostamegaly. Chronic bladder outlet obstruction with urinary bladder wall thickening, trabeculation and numerous diverticula measuring up to 4 cm. Associated perivesicular stranding. Atherosclerosis of the aorta without aneurysm. There is no adenopathy. There is no bowel obstruction or bowel wall thickening. Colonic diverticulosis. Normal appendix. Tiny fat filled periumbilical hernia. Degenerative changes of the spine, pelvis and hips. No acute fracture or suspicious bone lesion. IMPRESSION: 1. Mild left-sided hydroureter process secondary to an obstructing 4 mm calculus of the distal left ureter. 2. Nonobstructing right nephrolithiasis. 3. Prostamegaly with evidence of chronic bladder outlet obstruction. 4. Hepatic steatosis. ACT 112: Negative or not required by law. The above report was generated using voice recognition software. It may contain grammatical, syntax or spelling errors. Electronically signed by: Alen Garcia M.D. 03/30/2021 3:15 PM Medications Administered Home Medications albuterol sulfate 90 mcg/actuation aerosol inhaler 2 puff INHALATION Q6H PRN 07/01/18 [History Confirmed 03/30/21] fluticasone furoate 100 mcg-vilanterol 25 mcg/dose inhalation powder (Breo Ellipta) 1 inh INHALATION QAM 07/01/18 [History Confirmed 03/30/21] metformin 1,000 mg tablet 1,000 mg PO BID 07/01/18 [History Confirmed 03/30/21] metoprolol tartrate 25 mg tablet 25 mg PO BID 07/01/18 [History Confirmed 03/30/21] simvastatin 20 mg tablet 20 mg PO QPM 11/04/18 [History Confirmed 03/30/21] B-complex with vitamin C 1 tab PO DAILY 03/30/21 [History Confirmed 03/30/21] Focus Factor 1 tab PO BID 03/30/21 [History Confirmed 03/30/21] aspirin 81 mg tablet,delayed release 81 mg PO DAILY 03/30/21 [History Confirmed 03/30/21] ciprofloxacin HCl 500 mg tablet (Cipro) 500 mg PO Q12H #20 tab 03/30/21 [Rx] enalapril maleate 5 mg tablet 10 mg PO BID 03/30/21 [History Confirmed 03/30/21] exenatide microspheres 2 mg/0.85 mL subcutaneous auto-injector (Bydureon BCise) 2 mg SUBCUT WK 03/30/21 [History Confirmed 03/30/21] multivitamin (Multiple Vitamins) 1 tab PO DAILY 03/30/21 [History Confirmed 03/30/21] oxycodone 5 mg tablet 5 mg PO Q6H PRN #20 tab 03/30/21 [Rx] Active Medications Acetaminophen (Acetaminophen 325 Mg Tab) 650 mg PO Q6H PRN PRN Reason: pain mild-moderate Stop: 04/29/21 17:42 Morphine Sulfate (Morphine Sulfate 4 Mg/Ml 1 Ml Carp\Vial) 3 mg IV Q4 PRN PRN Reason: severe pain not controlled Stop: 04/13/21 18:04 Discontinued Medications Sodium Chloride (Nss 1000ml) 1,000 mls @ 999 mls/hr IV .Q1H1M ONE Stop: 03/30/21 16:47 Last Infusion: 03/30/21 17:19 Dose: 0 mls/hr Documented by: [id number] Admin: 03/30/21 16:05 Dose: 999 mls/hr Documented by: [id number] Ceftriaxone Sodium (Rocephin) 1,000 mg in 50 mls @ 100 mls/hr IV NOW STA Stop: 03/30/21 16:34 Last Infusion: 03/30/21 17:19 Dose: 0 mls/hr Documented by: [id number] Admin: 03/30/21 16:14 Dose: 100 mls/hr Documented by: [id number] Morphine Sulfate (Morphine Sulfate 4 Mg/Ml 1 Ml Carp\Vial) 4 mg IV NOW STA Stop: 03/30/21 16:45 Last Admin: 03/30/21 16:50 Dose: 4 mg Documented by: [id number] Morphine Sulfate (Morphine Sulfate 10 Mg/Ml Carp/Vial) 6 mg IV NOW STA Stop: 03/30/21 17:26 Last Admin: 03/30/21 18:06 Dose: 6 mg Documented by: [id number] Ondansetron HCl (Ondansetron Inj 2 Mg/Ml 2 Ml Vial) 4 mg IV NOW STA Stop: 03/30/21 16:45 Last Admin: 03/30/21 16:50 Dose: 4 mg Documented by: [id number] Additional Comments: Sinus rhythm with 1st degree A-V block Otherwise normal ECG When compared with ECG of 23-OCT-2015 17:07, No significant change was found Confirmed by MARC CRUZ ([id number]) on 07/07/2018 4:55:52 AM Code Status & VTE Plan Code Status CODE: FULL VTE: SCDS, ambulation- hold on chemoprophylaxis until surgical evaluation VTE Prophylaxis Plan VTE Prophylaxis will be ordered: Yes Supervising Physician Co-Signing Physician Notes Attending note: patient seen and examined with Eleazar LOPEZ. I agree with his history, ROS, examination and assessment and plan. I reviewed labs, imaging. 4mm ureteral stone with pain IV fluids, pain control, consult urology for recommendations on management check BMP in morning PG Care Time/CCT Total # of Minutes Spent Total Time Spent with Patient: Total time spent is greater than 50% in coordination of care (as documented) at patient's floor/unit and/or counseling patient: Coding Level of Care Code 43395 Initial Inpt Care Lvl 3 Diagnoses Nephrolithiasis N20.0 Renal colic N23 COPD (chronic obstructive pulmonary disease) J44.9 Hypertension I10 Diabetes mellitus E11.9 HLD (hyperlipidemia) E78.5 Leukocytosis D72.829 DVT prophylaxis Z29.9
[2021-03-30] MEDS ORDERED: TAMSULOSIN HCL 0.4 MG CAP PO ONE (20:12)
[2021-03-30] MEDS: LACTATED RINGER'S 1,000 ML IV SCH (20:23)
[2021-03-30] MEDS ORDERED: oxyCODONE HCL IR 5 MG TAB (IMMEDIATE RELEASE) PO PRN (22:44)
[2021-03-30] MEDS ORDERED: GLUCOSE 40% GEL 15 GM TUBE PO PRN (22:44)
[2021-03-30] MEDS ORDERED: ALBUTEROL HFA 8 GM INHALER INH PRN (22:44)
[2021-03-30] MEDS ORDERED: SIMVASTATIN 20 MG TAB PO SCH (22:44)
[2021-03-30] MEDS ORDERED: GLUCOSE 10 TABS/TUBE PO PRN (22:44)
[2021-03-30] MEDS ORDERED: CARBOHYDRATES FOR HYPOGLYCEMIA PO PRN (22:44)
[2021-03-30] MEDS ORDERED: KETOROLAC TROMETHAMINE 15 MG/ML VIAL IV PRN (22:44)
[2021-03-30] MEDS ORDERED: GLUCAGON FOR INJ 1 MG VIAL SQ PRN (22:44)
[2021-03-30] MEDS ORDERED: DEXTROSE 50% 50 ML SYRINGE IV PRN (22:44)
[2021-03-30] MEDS: METOPROLOL TARTRATE 25 MG TAB PO SCH (23:48)
[2021-03-30] MEDS: ENALAPRIL MALEATE 10 MG TAB PO SCH (23:48)
[2021-03-31] MEDS: INSULIN ASPART PER UNIT SC SCH ×3 (00:38→13:04)
[2021-03-31] MEDS: LACTATED RINGER'S 1,000 ML IV SCH (05:26)
[2021-03-31 06:25] LABS: Basophils # (auto) 0.03 K/uL (0-0.2); Basophils % (auto) 0.3 %; Eosinophils # (auto) 0.11 K/uL (0-0.5); Hematocrit (blood only) 40.2 % (42-52); Immature Granulocytes # (auto) 0.02 K/uL (0.00-0.02); Immature Granulocytes % (auto) 0.2 %; Lymphocytes # (auto) 1.94 K/uL (1.2-3.4); Lymphocytes % (auto) 17.1 %; Mean Corpuscular Hemoglobin 31.5 pg (25-34); Mean Corpuscular Hgb Conc 34.8 g/dL (32-36); Mean Corpuscular Volume 90.5 fL (80-100); Mean Platelet Volume 9.4 fL (7.4-10.4); Monocytes # (auto) 1.18 K/uL (0.11-0.59); Monocytes % (auto) 10.4 %; Neutrophils # (auto) 8.04 K/uL (1.4-6.5); Platelet Count 202 K/uL (130-400); RDW Coefficient of Variation 13.4 % (11.5-14.5); RDW Standard Deviation 44.3 fL (36.4-46.3); Red Blood Count 4.44 M/uL (4.7-6.1); White Blood Count 11.32 K/uL (4.8-10.8)
[2021-03-31 06:50] LABS: BUN Creatinine Ratio 13.6 (10-20); Calcium 8.5 mg/dl (8.5-10.1); Creatinine Clr Calc Pharmacy 87.7 ml/min; Est GFR (African American) 86.5 ml/min; Est GFR (Non-African American) 74.7 ml/min; Magnesium 2.3 mg/dl (1.8-2.4); Potassium 3.4 mmol/L (3.5-5.1)
[2021-03-31] MEDS ORDERED: TAMSULOSIN HCL 0.4 MG CAP PO SCH (09:00)
[2021-03-31] MEDS ORDERED: FLUTICASONE/VILANTEROL 100/25MCG 14 PUFFS/INHALER INH SCH (09:00)
--- NOTE | 2021-03-31 10:31 | Urology Consultation ---
Date of Consultation March 31, 2021 Assessment & Plan (1) Ureteral calculus: -The patient likely passed the stone late last evening -No pain at the moment -OK for discharge from a Urology POV -Can f/u as an outpt for routine f/u KUB History of Present Illness Reason for Consultation: Ureteral Calculus Attending Physician: Nathan Broderick DO History of Present Illness 5f YOM with past medical history of: Obesity, DM II, HTN, HLD, urethral stricutres, meatal stenosis,COPD. Patient comes to the EMD for 1 day history of renal colic pain to left side associated with nausea/vomitting. Patient was brought in via EMS- he received toradol and Zofran on the way, which he states made his pain better, upon preparing for discharge from EMD patient had increase in his pain and vomitted again. Patient states that last evening he developed sharp pain in his left side and was immediately followed by vomiting. He was able to sleep through the night and when he got up this morning he felt cold and clammy, showered and sat down to have a cup of coffee. Following his 2 sips of coffee he had pain again on his left flank and was associated with nausea and vomiting again. In the EMD the patient had CT scan of abdomen and pelvis completed, routine labs, UA and COVID test. His CT abdomen and pelvis revealedMild left-sided hydroureter process secondary to an obstructing 4 mm calculus of the distal left ureter and few scattered stones on the right side, prostamegaly with chronic outlet obstruction. Since admission, the patient had a urinary episode with intermit/hest. There after he has felt very little pain and has voided normally. Allergies Allergy/AdvReac Type Severity Reaction Status Date / Time No Known Drug Allergies Allergy Verified 03/30/21 16:40 Home Medications Medication Instructions Recorded Confirmed Type albuterol sulfate 90 mcg/actuation 2 puff INHALATION Q6H PRN 07/01/18 03/30/21 History aerosol inhaler fluticasone furoate 100 1 inh INHALATION QAM 07/01/18 03/30/21 History mcg-vilanterol 25 mcg/dose inhalation powder (Breo Ellipta) metformin 1,000 mg tablet 1,000 mg PO BID 07/01/18 03/30/21 History metoprolol tartrate 25 mg tablet 25 mg PO BID 07/01/18 03/30/21 History simvastatin 20 mg tablet 20 mg PO QPM 11/04/18 03/30/21 History B-complex with vitamin C 1 tab PO DAILY 03/30/21 03/30/21 History Focus Factor 1 tab PO BID 03/30/21 03/30/21 History aspirin 81 mg tablet,delayed 81 mg PO DAILY 03/30/21 03/30/21 History release ciprofloxacin HCl 500 mg tablet 500 mg PO Q12H #20 tab 03/30/21 Rx (Cipro) enalapril maleate 5 mg tablet 10 mg PO BID 03/30/21 03/30/21 History exenatide microspheres 2 mg/0.85 2 mg SUBCUT WK 03/30/21 03/30/21 History mL subcutaneous auto-injector (Bydureluisa Yinse) multivitamin (Multiple Vitamins) 1 tab PO DAILY 03/30/21 03/30/21 History oxycodone 5 mg tablet 5 mg PO Q6H PRN #20 tab 03/30/21 Rx Patient History Medical History (Updated 03/31/21 @ 10:33 by Bigg Neumann MD) Asthma WITH EARLY SIGNS OF EMPHYSEMA Diabetes mellitus, type 2 Hyperlipidemia Hypertension Kidney stones once Surgical History History of adenoidectomy History of incision and drainage PENIS/SCROTUM History of tonsillectomy Hx of vasectomy Pilonidal cyst Pyloric stenosis REPAIRED INFANT Family History Mother Family history of diabetes mellitus Social History Smoking Status: Former smoker Cigarettes Per Day: Smoked 1ppd x 35 years; Second Hand Exposure: No; Hx Alcohol Use: Yes Alcohol type: beer and hard liquor Hx Substance Use: No Preferred Language: Dutch Communication Ability: Effective Concrete Pavement Installer Required: No Beliefs That Will Affect Care: None Current Living Situation: Spouse Other Information That Helps Us Care for You: No Feels Safe at Home: Yes Safety Concerns: Feels Safe At This Time Assistive Devices: Glasses Review of Systems Constitutional: as per Subjective / HPI Physical Exam Constitutional: WD/WN, vitals as above Eyes: PERRL, conjunctivae normal, anicteric sclerae Respiratory: normal respiratory effort, lungs clear to auscultation Skin: no rashes, warm and dry Lymphatic: no cervical or axillary lymphadenopathy Results & Data ([facility]) Vital Signs (Past 12 Hours) Vital Signs Temp Pulse Resp BP Pulse Ox 03/31/21 07:39 36.6 C 86 16 149/76 H 94 03/31/21 00:52 157/82 H 03/31/21 00:15 36.7 C 100 H 16 191/97 H 96 03/30/21 23:55 100 H 18 150/96 H 94 03/30/21 22:49 104 H 20 149/99 H 93 PG Care Time/CCT Total # of Minutes Spent Total Time Spent with Patient: Total time spent is greater than 50% in coordination of care (as documented) at patient's floor/unit and/or counseling patient: 60 Coding Level of Care Code 91129 Inpt Consult Level 4 Diagnoses Ureteral calculus N20.1
[2021-03-31] MEDS: ENALAPRIL MALEATE 10 MG TAB PO SCH (11:00)
[2021-03-31] MEDS: METOPROLOL TARTRATE 25 MG TAB PO SCH (11:01)
--- NOTE | 2021-03-31 13:56 | Discharge Summary ---
Date of Service March 31, 2021 Admission HPI Per Admitting Provider 65f YOM with past medical history of: Obesity, DM II, HTN, HLD, urethral stricutres, meatal stenosis,COPD. Patient comes to the EMD today for 1 day history of renal colic pain to left side associated with nausea/vomitting. Patient was brought in via EMS- he received toradol and Zofran on the way, which he states made his pain better, upon preparing for discharge from EMD patient had increase in his pain and vomitted again. Patient to be admitted for pain control, IVF, continue abx, and urology evaluation. Patient states that last evening he developed sharp pain in his left side and was immediately followed by vomiting. He was able to sleep through the night and when he got up this morning he felt cold and clammy, showered and sat down to have a cup of coffee. Following his 2 sips of coffee he had pain again on his left flank and was associated with nausea and vomiting again. In the EMD the patient had CT scan of abdomen and pelvis completed, routine labs, UA and COVID test. His CT abdomen and pelvis revealed Mild left-sided hydroureter process secondary to an obstructing 4 mm calculus of the distal left ureter and few scattered stones on the right side, prostamegaly with chronic outlet obstruction. In the EMD he recieved 1 GM Rocephin, morphine and Zofran. Patient just returned from bathroom and feels better at this time. As above, will admit for symptom control and evaluation in the morning. Will keep NPO, LR at 100ml/hr, Flomax 0.4mg now and then daily. Patient has received his COVID vaccine and booster: His COVID test on admission is: Principal Diagnosis 1. Left hydroureter 2/2 4mm Left Distal Ureter, has likely since passed 2. Leukocytosis 3. Abnormal UA-- ? UTI Discharge Exam General: Resting comfortably in his hospital bed. NAD. HEENT: Head is AT/NC buccal mucosa is moist and pink Neck: No JVD. Negative hepatojugular reflex Cardiac: RRR without M/G/R Lungs: CTA without W/R/R Abdomen: Normoactive X4. Soft and nontender in all quadrants. No CVA tenderness Extremities: No peripheral clubbing cyanosis or edema Neuro: A&O X4 cranial nerves II through XII are grossly intact no focal neuro deficits Skin: No obvious skin lesions or rashes Psych: Appropriate affect pleasant and cooperative Discharge Data Allergies Allergy/AdvReac Type Severity Reaction Status Date / Time No Known Drug Allergies Allergy Verified 03/30/21 16:40 Consultations 03/30/21 17:25 ED Decision to Admit Stat 03/30/21 22:44 Consult Urology Routine Assessment & Plan (1) Ureteral calculus: -The patient likely passed the stone late last evening -No pain at the moment -OK for discharge from a Urology POV -Can f/u as an outpt for routine f/u KUB Ordered Studies 03/30/21 14:32 CT abd pelvis wo con Stat IMPRESSION: 1. Mild left-sided hydroureter process secondary to an obstructing 4 mm calculus of the distal left ureter. 2. Nonobstructing right nephrolithiasis. 3. Prostamegaly with evidence of chronic bladder outlet obstruction. 4. Hepatic steatosis. Hospital Course (1) Nephrolithiasis: Bilateral- left sided renal colic with 4mm left sided obstructing proximal to UV junction * per history, likely passed the stone lastnight (was unable to void, then had "sputtering of urine several times then free flowing urine". Since this episode, no pain * seen by Urology who recommends D/C to home (reports no need for KUB now but this can be facilitated as an OP) * UA was leukocyte esterase positive but nitrite negative along with leukocytosis upon presentation. Would advise continued antibiotics X 3 to 5 days for uncomplicated UTI (Cipro 500mg bid) * Established with Dr. Orellana. To FU as an OP * return to the Ed for new or worsening symptoms (2) Renal colic: As above (3) Leukocytosis: * 14.9 upon presentation * Urine questionable (turbid and leukocyte esterase positive. Nitrite negative) * Treated with Rocephin and white blood cell count normalized * Continue antibiotic therapy X 5 days (Cipro 500 mg twice dailyRx already sent by ED physician as initial plan was for discharge from the ED but given amount of pain, patient was hospitalized) (4) COPD (chronic obstructive pulmonary disease): Continue albuterol and Breo - no acute needs and does not have frequent exacerbations (5) Hypertension: Continue BB - Patient on enalipril - Likely elevated now secondary to pain but acceptable (149/76) (6) Diabetes mellitus: * Metformin held while in house. Treated with sliding scale coverage/correction dosing analog * Okay to resume Metformin upon discharge. CT done in the ED but without con trast thus no need to hold (7) HLD (hyperlipidemia): Continue simvastatin 20mg PO QPM (8) DVT prophylaxis: SCDS- ambulation d/c to home Total Time Total Time Spent Total Time Spent (In Minutes): 35 min Discharge Plan Discharge Items Patient Disposition: Home - Self-Care Reason For Visit: RENAL STONE WITH RENAL COLIC Discharge Diagnosis: 1. Obstructing Kidney Stone (likely since passed) 2. Leukocytosis (elevated White Blood Cell Count) 3. ? UTI Activity: Resume your previous activity Non-emergency contact: Primary Care Provider and Urologist Call non-emergency contact if: you have any medication questions, your symptoms worsen and your pain is not controlled Follow-up/Referrals: Emery Orellana MD [Physician] - Jonnathan Denton MD [Primary Care Provider] - Diet: Regular Addtl Attending Provider Instructions: - you were hospitalized with a 4mm stone "stuck" in the distal ureter (which is the "tube" going from your kidney to your bladder" - based on your detailed report of the overnight hours, it seems as if you may had passed this stone - you are not having pain at this time and are medically stable for discharge to home - you will be continued on antibiotic therapy for 5 days for concern regarding an associated urinary tract infection (complete this abx)--> this was already send to the Pharmacy by ED Physician along with pain medication as the initial plan was to D/C you to home - Follow up with Dr. Orellana within 2 weeks - return to the ED for new or worsening symptoms Pending Studies at Discharge: Yes Studies:: urine culture Stand-Alone Forms: My [employer], Smoking Cessation Medications and DC Order Prescriptions: New ciprofloxacin HCl [Cipro] 500 mg tablet 500 mg PO Q12H Qty: 20 RF: 0 oxycodone 5 mg tablet 5 mg PO Q6H PRN (Reason: pain) Qty: 20 RF: 0 Continued simvastatin 20 mg tablet 20 mg PO QPM RF: 0 metoprolol tartrate 25 mg Tablet 25 mg PO BID RF: 0 Breo Ellipta 100-25 mcg/dose Blister With Device 1 inh INHALATION QAM RF: 0 albuterol sulfate 90 mcg/actuation Hfa Aerosol Inhaler 2 puff INHALATION Q6H PRN (Reason: Wheezing) RF: 0 metformin 1,000 mg Tablet 1,000 mg PO BID RF: 0 aspirin 81 mg Tablet,Delayed Release (Dr/Ec) 81 mg PO DAILY RF: 0 Bydureon BCise 2 mg/0.85 mL auto-injector 2 mg SUBCUT WK RF: 0 B-complex with vitamin C Tablet 1 tab PO DAILY RF: 0 enalapril maleate 5 mg tablet 10 mg PO BID RF: 0 Focus Factor 1 tab PO BID RF: 0 multivitamin [Multiple Vitamins] Tablet 1 tab PO DAILY RF: 0 Discharge Orders: Discharge Order (Routine); Ordered 03/31/21 Ordered By: Nenita Andino Admission Data Admit Date/Time: 03/30/21 17:47 Attending Provider: Nathan Broderick Admit Provider: Mark Pride Primary Care Provider: Jonnathan Denton Other Providers: Don Costello ; Bigg Neumann Other Interventions: Discharge Summary Assessment (RN) Last Done: 03/31/21 13:20 Supervising Physician Co-Signing Physician Notes I personally examined the patient and verified all adrian points of history and exam, discussed case, and agree with decision making with Rebecca Andino PAC feeling better wants to go home nad breathing unlabored no rashes no pallor or icterus kidney stone - doing better pain controlled safe for home otherwise as above Coding Level of Care Code D/C DAY MANAGEMENT >30 MINS Diagnoses Nephrolithiasis N20.0 Renal colic N23 Leukocytosis D72.829 COPD (chronic obstructive pulmonary disease) J44.9 Hypertension I10 Diabetes mellitus E11.9 HLD (hyperlipidemia) E78.5 DVT prophylaxis Z29.9
[2021-03-31] MEDS ORDERED: cefTRIAXone SODIUM 2,000 MG in DEXTROSE 5% 50 ML IV SCH (16:00)
== END 2021-03-31 14:15 | disposition home or self-care (01) | DRG 694 ==
LOC: ED 13:45 → EDINP 17:47 → SUATTDRO 17:47 → 3W 23:00